=== PATIENT | male | born 1985 | race American Indian/Alaskan Native ===

== ENCOUNTER 2021-10-27 21:49 | Emergency (ER) | payer OTHER ==
[2021-10-27] MEDS ORDERED: cloNIDine 0.2 MG TAB ONE (21:55)
[2021-10-27] MEDS ORDERED: cloNIDine 0.2 MG TAB PO ONE (22:18)
--- NOTE | 2021-10-27 22:37 | Cat Scan Report ---
CT HEAD WITHOUT CONTRAST INDICATION / CLINICAL INFORMATION: FACIAL NUMBNESS. TECHNIQUE: All CT scans at this location are performed using CT dose reduction for ALARA by means of automated exposure control. COMPARISON: None available. FINDINGS: HEMORRHAGE: None. EXTRA-AXIAL SPACES: Normal in size and morphology for the patient's age. VENTRICULAR SYSTEM: Normal in size and morphology for the patient's age. CEREBRAL PARENCHYMA: No significant abnormality. No acute territorial infarct. MIDLINE SHIFT / HERNIATION: None. CEREBELLUM / BRAINSTEM: No significant abnormality. ORBITS: Normal as visualized SOFT TISSUES: No significant abnormality. SKULL: No significant abnormality. PARANASAL SINUSES / MASTOID AIR CELLS: Normal as visualized ADDITIONAL FINDINGS: None. IMPRESSION: 1. No acute intracranial abnormality. Signer Name: Melvin Pimentel DO Signed: 10/27/2021 10:32 PM Workstation Name: [id number]
[2021-10-28] MEDS ORDERED: methylPREDNISolone Sod Succinate 125 MG/2 ML INJ IM ONE (01:43)
[2021-10-28] MEDS ORDERED: hydrALAZINE 25 MG TAB PO ONE (01:43)
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
[2021-10-28 03:06] VITALS: BP 160/85
== END 2021-10-28 02:30 | disposition home or self-care (01) ==
LOC: ED 21:49
DX: G51.0 Bell's palsy (principal); I10 Essential (primary) hypertension; Z98.890 Other specified postprocedural states; F17.200 Nicotine dependence, unspecified, uncomplicated
CPT/HCPCS: 70450; 96372; 99283; J2930